=== PATIENT | female | born 1980 | race Caucasian/White ===

== ENCOUNTER → 2016-11-02 | Outpatient (CLI) | payer BC ==
--- NOTE | 2016-11-03 09:19 | WWHP ---
DATE OF SERVICE: 11/02/2016 CHIEF COMPLAINT: The patient is here for her routine gynecologic exam. HPI: This is a 36-year-old G0 with an LMP of 2015. She is status post supracervical hysterectomy and left salpingo-oophorectomy with previous right salpingo-oophorectomy for low malignant potential tumors of the ovary. The patient is without gynecologic complaints and denies any vaginal bleeding. She states her problems with urinary leakage have resolved and hot flashes have also improved. She is not on ERT. 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 She denies any other medical problems. MEDICATIONS: She is currently taking amoxicillin temporarily for issues with her wisdom teeth. ALLERGIES: No known drug allergies. Past surgical history is unchanged from the 2016 H&P. SOCIAL HISTORY: She denies tobacco, alcohol, and drug use. 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 She recently filed for bankruptcy for financial problems. She has been with her boyfriend since 12/2015 and is sexually active. They do not live together. FAMILY HISTORY: Unknown since she is adopted. REVIEW OF SYSTEMS: She has gained about 14 pounds over the last year. She denies respiratory, cardiac, or GI problems. PHYSICAL EXAM: Blood pressure 134/72. Height 5 feet 4 inches. Weight 154 pounds. Temperature 96.4, pulse 62. This is a well-developed, well-nourished female who is alert and oriented x3, in no acute distress. HEENT is within normal limits. NECK: Supple without mass or thyromegaly. CHEST AND LUNGS: Clear to auscultation. HEART: Regular rate and rhythm. Breasts are without mass or discharge. Axillary exam is negative for adenopathy. BACK: Negative for CVA tenderness. ABDOMEN: Soft, nontender, without palpable masses. PELVIC EXAM: Normal external genitalia with no significant atrophy. Cervix and vagina appear normal. There is no significant atrophy. The cervix appears nulliparous. There is no unusual discharge. There is no cervical motion tenderness. Bimanual examination, the cervix in his normal size. There are no pelvic or adnexal masses or tenderness. Rectovaginal exam is negative for mass or tenderness. EXTREMITIES: Nontender. IMPRESSION: 1. A 36-year-old female who is status post supracervical hysterectomy and bilateral salpingo-oophorectomy because of her history of low-malignant potential ovarian tumors. 2. Normal gynecologic exam. 3. History of a benign left breast biopsy. PLAN: 1. Pap smear was performed. 2. Self breast examination was discussed. 3. The patient did have bilateral diagnostic mammogram on 04/30/2016. The recommendation was for followup diagnostic mammogram and ultrasound of the left breast in 6 months. An order slip for this was given to the patient. 4. Osteoporosis prevention was discussed. 5. STD prevention was discussed. I have recommended she use condoms if she is sexually active. 6. She will return in one year.
== END | disposition home or self-care (01) ==
LOC: WWCWWP 12:55
PROVIDERS: ATTEND Obstetrics & Gynecology

== ENCOUNTER → 2017-11-08 | Outpatient (CLI) | payer BC ==
[2017-11-08 08:20] VITALS: BP 115/73; PULSE 74; TEMP 98.1; BMI 27.4
--- NOTE | 2017-11-08 09:01 | P.HPOB ---
History of Present Illness H&P Date: 11/08/17 Chief Complaint: The patient is here for her routine gynecologic exam. This is a 36-year-old G0 with an LMP of 2014. She is status post supra- cervical hysterectomy and bilateral salpingo-oophorectomy for low malignant potential tumors of the ovaries. The patient is on low-dose ERT because of menopausal symptoms including emotional changes and moodiness. She states she is doing well with this. She is without gynecologic complaints. Review of Systems She has gained about 6 pounds over the last year. She denies respiratory, cardiac, or G.I. problems. 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 Past Anesthesia/Blood Transfusion Reactions: No Reported Reaction Additional Past Anesthesia/Blood Transfusion Reaction / Comment(s): adopted-no family hx Past Psychological History: No Psychological Hx Reported Smoking Status: Never smoker Past Alcohol Use History: None Reported Past Drug Use History: None Reported Additional History: The patient is single and has been with her boyfriend since 12/2015. She does not live with him. She works full-time at [employer]. - Past Family History Mother Family Medical History: Unable to Obtain (The patient is adopted.) Additional Family Medical History / Comment(s): no family hx Medications and Allergies Home Medications Medication Instructions Recorded Confirmed Type Esomeprazole Magnesium [NexIUM] 20 mg PO DAILY PRN 12/05/14 12/10/14 History L.acidoph,Paracasei, B.lactis 1 tab PO DAILY 12/05/14 12/10/14 History [Probiotic] Multivitamins, Thera [Theragran] 1 tab PO DAILY 12/05/14 12/10/14 History Estradiol [Estrace] 0.5 mg PO DAILY 11/08/17 11/08/17 History Allergies Allergy/AdvReac Type Severity Reaction Status Date / Time No Known Allergies Allergy Verified 11/08/17 08:22 Exam - Vital Signs Vital signs: Vital Signs Temp Pulse BP 11/08/17 08:16 98.1 F 74 115/73 Intake and Output 11/07/17 11/08/17 11/08/17 22:59 06:59 14:59 Other: Weight 72.575 kg Height 5'4" BMI 27.5. This is a well-developed well-nourished female who is alert and oriented times 3 in no acute distress. HEENT: Within normal limits. NECK: Supple without mass or thyromegaly. CHEST AND LUNGS: Clear to auscultation. HEART: Regular rate and rhythm. BREASTS: Are without mass or discharge. AXILLARY EXAM: Negative for adenopathy. BACK: Negative for CVA tenderness. ABDOMEN: Soft, nontender, without palpable masses. PELVIC EXAM: Normal external genitalia. Cervix and vagina appear normal without significant atrophy. There is no unusual discharge. There is no evidence of prolapse. The cervix is palpable, not enlarged and nontender. Findings are consistent with a previous supracervical hysterectomy. There are no palpable adnexal masses or tenderness. RECTAL EXAM: recto vaginal exam is negative for mass or tenderness. EXTREMITIES: Nontender. IMPRESSION: 1. 37-year-old surgically menopausal female who is status post supracervical hysterectomy and bilateral salpingo-oophorectomy for low malignant potential ovarian tumors in 2011 and 2014. There is no evidence of recurrence. 2. The patient is doing well on low-dose ERT for menopausal symptoms. PLAN: 1. Pap smear was performed. She is considered a high risk. 2. Self breast awareness was discussed. 3. Osteoporosis prevention was discussed. 4. She will continue on low-dose estradiol. 5. We have discussed the option of BRCA testing. She will consider this and let me know if she desires this type of testing. I have stressed the importance of having cancer genetic counseling done if she wants this kind of testing. 6. She will be following up with Dr. Alf Pope, her INCREMENT MANAGER oncologist, on a regular basis. 7. She will return in one year.
== END ==
LOC: WWCWWP 07:45
PROVIDERS: ATTEND Obstetrics & Gynecology
DX: Z53.9 Procedure and treatment not carried out, unspecified reason (principal)

== ENCOUNTER → 2018-05-09 | Outpatient (CLI) | payer BC ==
--- NOTE | 2018-05-09 15:26 | US ---
EXAMINATION TYPE: US pelvis limited transvag DATE OF EXAM: 05/09/2018 COMPARISON: CT CLINICAL HISTORY: C56.9 Malignant neoplasm of unspecified ovary. TECHNIQUE: Transvaginal (TV) and Transabdominal (TA) . Transabdominal sonographic images of the pel vis were acquired. Transvaginal sonographic images were ordered by physician due to patient history. Date of LMP: 2014 Pt. had hysterectomy and bilateral oophorectomy. She had a history of cysts that were sent to patholo gy coming back as borderline for ovarian cancer. EXAM MEASUREMENTS: Uterus: Surgically absent cm Right Ovary: Surgically absent Left Ovary: Surgically absent 1. Uterus: Surgically absent 2. Endometrium: Surgically absent 3. Right Ovary: Surgically absent 4. Left Ovary: Surgically absent 5. Bilateral Adnexa: wnl 6. Posterior cul-de-sac: wnl IMPRESSION: Surgical absence of uterus and ovaries. No suspicious findings in the postsurgical bed.
== END ==
LOC: RADUSWWP 14:28
PROVIDERS: ATTEND Obstetrics & Gynecology
DX: C56.9 Malignant neoplasm of unspecified ovary (principal); Z90.710 Acquired absence of both cervix and uterus; Z90.722 Acquired absence of ovaries, bilateral
CPT/HCPCS: 36415; 76830; 76857; 86304

== ENCOUNTER → 2018-06-28 | Outpatient (CLI) | payer BC ==
[2018-06-28 08:48] VITALS: BP 121/79; PULSE 62; BMI 26.2
--- NOTE | 2018-06-28 09:21 | P.PN ---
Progress Note - Text Progress Note Date: 06/28/18 Chief Complaint: requesting change in ERT HPI: this is a 37-year-old G0 with an LMP of 2015 [address] seen [address] Dr[address] Poep, the DATA ENTRY ASSOCIATE oncologist, because her history of ovarian cancer of low malignant potential. Dr. Pope had recommended that she increased her ERT because she was made surgically menopausal at such a young age. She has been on Estrace 0.5 mg daily. She denies any significant menopausal symptoms. ROS: unremarkable PE: Blood pressure: 132/86, Height: 5'4", Weight: 192, Temperature: 97.9, Pulse : 99. This is a well developed, well nourished, female who is alert and orientedx3, in no acute distress. Impression: 1. 37-year-old surgically menopausal female on low-dose ERT 2. History of ovarian cancer of low malignant potential, status post MARGARET and BSO Plan: 1. We will increase her ERT to Estrace 1 mg daily. I do believe this will be beneficial for her bones and vaginal tissues. The electronic prescription will be sent to [facility] in [place]. 2. She will call if she has any problems or side effects from this change. She will return next year which is due for her annual will woman exam. She will also continue to follow-up with Dr. Pope as directed. Time spent with the patient: 10 minutes
== END ==
LOC: WWCWWP 08:18
PROVIDERS: ATTEND Obstetrics & Gynecology
DX: Z53.9 Procedure and treatment not carried out, unspecified reason (principal)

== ENCOUNTER → 2018-11-14 | Outpatient (CLI) | payer BC ==
[2018-11-14 11:31] VITALS: BP 121/83; PULSE 63; RESP 20; TEMP 97.4; BMI 26.6
--- NOTE | 2018-11-14 12:30 | P.HPOB ---
History of Present Illness H&P Date: 11/14/18 Chief Complaint: The patient is here for her routine gynecologic exam. This is a 38 year old G0 with an LMP of 2014. The patient is status post supracervical hysterectomy and bilateral salpingo-oophorectomy done because of history of low malignant potential ovarian tumors. The patient states she is doing better on the 1 mg dose of estradiol. This was increased from 0.5 mg daily in June 2018. She states she feels more emotionally balanced with this dose of ERT. She is without gynecologic complaints and denies any vaginal bleeding. She continues to see a gynecologic oncologist, Dr. Alf Pope. Review of Systems The patient has lost 4 pounds over the last year. She denies respiratory, cardiac, or G.I. problems. 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 hx ovarian cancer of LMP 2011 and 2014. History of Any Multi-Drug Resistant Organisms: None Reported Past Surgical History: Breast Surgery Additional Past Surgical History / Comment(s): rt oophorectomy and left ovarian cystectomy in 2011, supracervical hysterectomy with left salpingo-oophorectomy and right salpingectomy in 2014. Left breast biopsy. Past Anesthesia/Blood Transfusion Reactions: No Reported Reaction Additional Past Anesthesia/Blood Transfusion Reaction / Comment(s): adopted-no family hx Past Psychological History: No Psychological Hx Reported Smoking Status: Never smoker Past Alcohol Use History: None Reported Past Drug Use History: None Reported Additional History: She is single and has been with her boyfriend since 2014. She does not live with him. She works full-time at [employer] in the [employer]. - Past Family History Mother Family Medical History: Unable to Obtain Additional Family Medical History / Comment(s): no family hx. The patient is adopted. Medications and Allergies Home Medications Medication Instructions Recorded Confirmed Type Multivitamins, Thera [Theragran] 1 tab PO DAILY 12/05/14 11/14/18 History Estradiol [Estrace] 1 mg PO DAILY #90 tab 06/28/18 11/14/18 Rx Allergies Allergy/AdvReac Type Severity Reaction Status Date / Time No Known Allergies Allergy Verified 11/14/18 11:25 Exam Vital Signs Temp Pulse Resp BP Pulse Ox 11/14/18 11:26 97.4 F L 63 20 121/83 100 Intake and Output 11/13/18 11/14/18 11/14/18 22:59 06:59 14:59 Other: Weight 70.307 kg Height 5'4", weight 155 pounds, BMI 26.6. This is a well-developed well-nourished female who is alert and oriented times 3 in no acute distress. HEENT: Within normal limits. NECK: Supple without mass or thyromegaly. CHEST AND LUNGS: Clear to auscultation. HEART: Regular rate and rhythm. BREASTS: Are without mass or discharge. AXILLARY EXAM: Negative for adenopathy. BACK: Negative for CVA tenderness. ABDOMEN: Soft, nontender, without palpable masses. PELVIC EXAM: Normal external genitalia. Cervix and vagina appear normal. There is no unusual discharge. There is no evidence of prolapse. Cervix is palpable and consistent with previous supracervical hysterectomy, and is nontender. There are no palpable adnexal masses or tenderness. RECTAL EXAM: rectovaginal exam is negative for mass or tenderness and is negative for occult blood. EXTREMITIES: Nontender. IMPRESSION: 1. 38 year old surgically menopausal female who is status post supracervical hysterectomy and bilateral salpingo-oophorectomy for low malignant potential ovarian tumors in 2011 and 2014. There is no evidence of recurrence. 2. Doing well on 1 mg of estradiol daily for menopausal symptoms. PLAN: 1. Pap smear was performed. I will continue to do this yearly because of her history of the gynecologic malignancy. 2. Self breast awareness was discussed with the patient. 3. Screening mammography will resume at age 42 or PRN. 4. Osteoporosis prevention was discussed. I have stressed the importance of adequate calcium, vitamin D and regular exercise. Recommended amounts of calcium and vitamin D were also discussed. 5. She will continue to follow-up with Dr. Alf Pope, her PRECISION LENS POLISHER oncologist. She has an appointment with him on 12/06/2018. 6.She was advised to return in one year for her annual well woman exam.
== END | disposition home or self-care (01) ==
LOC: WWCWWP 10:59
PROVIDERS: ATTEND Obstetrics & Gynecology
DX: Z53.9 Procedure and treatment not carried out, unspecified reason (principal)

== ENCOUNTER → 2018-11-27 | Outpatient (CLI) | payer BC ==
--- NOTE | 2018-11-27 08:05 | US ---
EXAMINATION TYPE: US abdomen complete DATE OF EXAM: 11/27/2018 COMPARISON: NONE CLINICAL HISTORY: C56.9 Malignant neoplasm of unspecified ovary. assess abdominal organs prior to onc ology appointment,h/o ovarian ca, no symptoms today EXAM MEASUREMENTS: Liver Length: 15.3 cm Gallbladder Wall: 0.2 cm CBD: 0.7 cm Spleen: 9.6 cm Right Kidney: 10.8 x 4.5 x 4.4 cm Left Kidney: 10.8 x 5.5 x 5.5 cm Pancreas: wnl Liver: wnl Gallbladder: wnl Evidence for sonographic Miller's sign: n o CBD: upper limits of normal Spleen: wnl Right Kidney: wnl Left Kidney: 1.2cm superior pole cyst seen Upper IVC: wnl Abd Aorta: wnl The liver is homogenous. The intrahepatic portion of the IVC and proximal abdominal aorta are within normal limits. There is no evidence of cholelithiasis. Common bile duct is unremarkable. The visu alized portions of the pancreas are homogenous. The spleen is unremarkable. Kidneys are symmetric a nd free of hydronephrosis. No solid renal lesions are seen. IMPRESSION: 1. Cyst upper pole left kidney. Otherwise unremarkable study.
--- NOTE | 2018-11-27 08:38 | US ---
EXAMINATION TYPE: US pelvis limited transvag DATE OF EXAM: 11/27/2018 COMPARISON: NONE CLINICAL HISTORY: C56.9 Malignant neoplasm of unspecified ovary. total hysterectomy 2015, ovarian ca, follow up exam prior to oncologist appointment, no symptoms currently TECHNIQUE: TA/TV. Transabdominal sonographic images of the pelvis were acquired. Date of LMP: 2014 EXAM MEASUREMENTS: Uterus: Surgically absent Endometrial Stripe: Surgically absent Right Ovary: Surgically absent Left Ovary: Surgically absent IMPRESSION: Post hysterectomy pelvis appears wnl with no obvious fluid collections or abnormalities noted.
== END | disposition home or self-care (01) ==
LOC: RADUSWWP 07:01
DX: N28.1 Cyst of kidney, acquired (principal); C56.9 Malignant neoplasm of unspecified ovary; Z90.710 Acquired absence of both cervix and uterus
CPT/HCPCS: 76700; 76830; 76857

== ENCOUNTER → 2019-08-20 | Outpatient (CLI) | payer BC ==
--- NOTE | 2019-08-20 15:03 | US ---
EXAMINATION TYPE: US pelvis complete transvag DATE OF EXAM: 08/20/2019 COMPARISON: US 2019 CLINICAL HISTORY: D39.10 Neoplasm of uncertain behavior of. Total hysterectomy 2015, history ovarian cancer, no symptoms. TECHNIQUE: Transabdominal sonographic images of the pelvis were acquired. Transvaginal sonographic i mages were medically necessary to better assess the following anatomy: Date of LMP: 2014 EXAM MEASUREMENTS: 1. Uterus: surgically absent 2. Endometrium: surgically absent 3. Right Ovary: surgically absent 4. Left Ovary: surgically absent 5. Bilateral Adnexa: wnl 6. Posterior cul-de-sac: wnl Bowel is noted throughout the visualized pelvis. IMPRESSION: Bowel seen throughout the pelvis. Surgical absence of the ovaries and uterus.
== END | disposition home or self-care (01) ==
LOC: RADUSWWP 14:22
PROVIDERS: ATTEND Obstetrics & Gynecology Gynecologic Oncology
DX: D39.10 Neoplasm of uncertain behavior of unspecified ovary (principal); C56.9 Malignant neoplasm of unspecified ovary; Z90.722 Acquired absence of ovaries, bilateral; Z90.710 Acquired absence of both cervix and uterus
CPT/HCPCS: 76830; 76857; 86304

== ENCOUNTER → 2020-01-08 | Outpatient (CLI) | payer BC ==
[2020-01-08 15:34] VITALS: BP 125/80; PULSE 55; RESP 18; TEMP 98.1
--- NOTE | 2020-01-08 16:42 | P.HPOB ---
History of Present Illness H&P Date: 01/08/20 Chief Complaint: The patient is here for her routine gynecologic exam. This is a 39-year-old G0 with an LMP of 2014. The patient is status post supracervical hysterectomy with I lateral salpingo-oophorectomy done because of history of low malignant potential ovarian tumors. The patient states she has been doing well on 1 mg of estradiol daily. She is without gynecologic complaints. She continues to see her gynecologic oncologist Dr. Alf Pope. Pelvic ultrasound and CA-125 testing in July 2019 were within normal limits. Review of Systems The patient has lost 5 pounds over the last year with diet and exercise.. She denies respiratory, cardiac, or G.I. problems. 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 hx ovarian cancer of LMP 2011 and 2014. History of Any Multi-Drug Resistant Organisms: None Reported Past Surgical History: Breast Surgery, Hysterectomy Additional Past Surgical History / Comment(s): rt oophorectomy and left ovarian cystectomy in 2011, supracervical hysterectomy with left salpingo-oophorectomy and right salpingectomy in 2014. Left breast biopsy. Past Anesthesia/Blood Transfusion Reactions: No Reported Reaction Additional Past Anesthesia/Blood Transfusion Reaction / Comment(s): adopted-no family hx Past Psychological History: No Psychological Hx Reported Smoking Status: Never smoker Past Alcohol Use History: None Reported Past Drug Use History: None Reported Additional History: She is engaged and has been with her fianc since 2014. She lives with him. She works at [employer] in the [employer]. - Past Family History Mother Family Medical History: Unable to Obtain Additional Family Medical History / Comment(s): no family hx. The patient is adopted. Medications and Allergies Home Medications Medication Instructions Recorded Confirmed Type Multivitamins, Thera [Theragran] 1 tab PO DAILY 12/05/14 01/08/20 History Estradiol [Estrace] 1 mg PO DAILY #90 tab 11/14/18 01/08/20 Rx Allergies Allergy/AdvReac Type Severity Reaction Status Date / Time No Known Allergies Allergy Verified 01/08/20 15:28 Exam Vital Signs Temp Pulse Resp BP Pulse Ox 01/08/20 15:30 98.1 F 55 L 18 125/80 100 Intake and Output 01/08/20 01/08/20 01/08/20 06:59 14:59 22:59 Other: Weight 68.039 kg Height 5 feet 3 inches, weight 150 pounds, BMI 26.6. This is a well-developed well-nourished female who is alert and oriented times 3 in no acute distress. HEENT: Within normal limits. NECK: Supple without mass or thyromegaly. CHEST AND LUNGS: Clear to auscultation. HEART: Regular rate and rhythm. BREASTS: Are without mass or discharge. AXILLARY EXAM: Negative for adenopathy. BACK: Negative for CVA tenderness. ABDOMEN: Soft, nontender, without palpable masses. PELVIC EXAM: Normal external genitalia. Cervix and vagina appear normal. There is no unusual discharge. There is no evidence of prolapse. The cervix is palpable and consistent with previous supracervical hysterectomy and is nontender. There are no palpable adnexal masses or tenderness. RECTAL EXAM: Rectovaginal exam is negative for mass or tenderness and is negative for occult blood. EXTREMITIES: Nontender. IMPRESSION: 1. 39-year-old surgically menopausal female who is status post supracervical hysterectomy and bilateral salpingo-oophorectomy for low malignant potential ovarian tumors in 2011 and 2014. Exam is unremarkable and there is no evidence of recurrence. 2. She is doing well on ERT for menopausal symptoms. PLAN: 1. Pap smear was performed. I will continue to do this yearly because of her history of the gynecologic malignancy. 2. Self breast awareness was discussed with the patient. 3. Screening mammogram will resume at age 42 and as needed. 4. Osteoporosis prevention was discussed. I have stressed the importance of adequate calcium, vitamin D and regular exercise. Recommended amounts of calcium and vitamin D were also discussed. 5. She will continue Estradiol 1 mg daily. The electronic prescription will be sent to my her pharmacy in [place]. 6. She will continue to see Dr. Pope, her COLLAR SHAPER OPERATOR oncologist. He has been doing regular pelvic ultrasounds and CA-125 testing. 7. She was advised to return in one year for her annual well woman exam.
--- NOTE | 2020-01-16 12:41 | P.PN ---
Progress Note - Text Progress Note Date: 01/16/20 OUTPATIENT FOLLOW-UP NOTE TEST(S)/RESULTS: Vaginal cuff Pap smear from 01/08/2020 was negative. METHOD OF NOTIFICATION: The patient was left a voice mail with this result. PATIENT COMMENTS: [] DIAGNOSIS: Negative vaginal Pap smear. DISCUSSION: A copy will be sent to her DETECTIVE SUPERVISOR oncologist, Dr. Alf Pope. PLAN: She was advised to return in one year for her annual well woman exam. She will also be following up with Dr. Pope as directed.
== END | disposition home or self-care (01) ==
LOC: WWCWWP 15:21
PROVIDERS: ATTEND Obstetrics & Gynecology
DX: Z53.9 Procedure and treatment not carried out, unspecified reason (principal)

== ENCOUNTER → 2020-07-22 | Outpatient (CLI) | payer BC ==
--- NOTE | 2020-07-22 10:34 | US ---
EXAMINATION TYPE: US venous doppler duplex LE RT DATE OF EXAM: 07/22/2020 10:23 AM COMPARISON: NONE CLINICAL HISTORY: M79.604 Pain in right leg. SIDE PERFORMED: Right TECHNIQUE: The lower extremity deep venous system is examined utilizing real time linear array sonog anay with graded compression, doppler sonography and color-flow sonography. VESSELS IMAGED: Common Femoral Vein Deep Femoral Vein Greater Saphenous Vein * Femoral Vein Popliteal Vein Small Saphenous Vein * Proximal Calf Veins (* superficial vessels) Right Leg: Negative for DVT Preliminary results given to L[place] at Dr. Vidal's office. IMPRESSION: 1. Right lower extremity ultrasound negative for deep venous thrombosis.
== END | disposition home or self-care (01) ==
LOC: RADUSWWP 09:47
PROVIDERS: ATTEND Family Medicine
DX: M79.604 Pain in right leg (principal)

== ENCOUNTER → 2021-01-27 | Outpatient (CLI) | payer BC | CPT/HCPCS: 86304 ==

== ENCOUNTER → 2022-02-23 | Outpatient (CLI) | payer BC ==
[2022-02-23 08:01] VITALS: BP 129/84; PULSE 55; RESP 18; TEMP 97.9
--- NOTE | 2022-02-23 08:48 | P.HPOB ---
History of Present Illness H&P Date: 02/23/22 Chief Complaint: The patient is here for her routine gynecologic exam. This is a 41-year-old G0 with an LMP of 2014. The patient is without gynecologic complaints and denies any postmenopausal bleeding. She is status post supracervical hysterectomy with bilateral salpingo-oophorectomy because of her history of low malignant potential ovarian tumors. She is now approximately 7 years out from her hysterectomy and removal of her remaining ovary. She has been doing well on ERT in the form of estradiol 1 mg daily. Her last pelvic ultrasound was done approximately 3 months ago and was unremarkable. 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 Review of Systems The patient has gained 8 pounds over the last year. She denies respiratory, cardiac, or G.I. problems. 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 hx ovarian cancer of low malignant potential 2011 and 2014. History of Any Multi-Drug Resistant Organisms: None Reported Past Surgical History: Breast Surgery, Hysterectomy Additional Past Surgical History / Comment(s): rt oophorectomy and left ovarian cystectomy in 2011, supracervical hysterectomy with left salpingo-oophorectomy and right salpingectomy in 2014. Left breast biopsy. Past Anesthesia/Blood Transfusion Reactions: No Reported Reaction Additional Past Anesthesia/Blood Transfusion Reaction / Comment(s): adopted-no family hx Past Psychological History: No Psychological Hx Reported Smoking Status: Never smoker Past Alcohol Use History: None Reported Past Drug Use History: None Reported Additional History: She is engaged to be in April 2022. They have been together since 2014 and they live together. She'll be starting a new job working for a company in [employer]. - Past Family History Mother Family Medical History: Unable to Obtain Additional Family Medical History / Comment(s): no family hx. The patient is adopted. Medications and Allergies Home Medications Medication Instructions Recorded Confirmed Type Multivitamins, Thera [Theragran] 1 tab PO DAILY 12/05/14 02/23/22 History estradioL [Estrace] 1 mg PO DAILY #90 tab 01/27/21 02/23/22 Rx Allergies Allergy/AdvReac Type Severity Reaction Status Date / Time No Known Allergies Allergy Verified 02/23/22 07:56 Exam Vital Signs Temp Pulse Resp BP Pulse Ox 02/23/22 07:58 97.9 F 55 L 18 129/84 100 Intake and Output 02/22/22 02/23/22 02/23/22 22:59 06:59 14:59 Other: Weight 75.75 kg Height 5 feet 4 inches, weight 167 pounds, BMI 28.7. This is a well-developed well-nourished female who is alert and oriented times 3 in no acute distress. HEENT: Within normal limits. NECK: Supple without mass or thyromegaly. CHEST AND LUNGS: Clear to auscultation. HEART: Regular rate and rhythm. BREASTS: Are without mass or discharge. AXILLARY EXAM: Negative for adenopathy. BACK: Negative for CVA tenderness. ABDOMEN: Soft, nontender, without palpable masses. PELVIC EXAM: Normal external genitalia. Cervix and vagina appear normal. There is no unusual discharge. There is no evidence of prolapse. The cervix is palpable and consistent with a supracervical hysterectomy. There are no palpable adnexal masses or tenderness. RECTAL EXAM: Rectovaginal exam is negative for mass or tenderness. EXTREMITIES: Nontender. IMPRESSION: 1. 41-year-old female status post supracervical hysterectomy and BSO for low malignant potential ovarian tumors in 2011 and 2014. Her exam today is unremarkable with no evidence of recurrence. 2. She is doing well on ERT for early menopause and menopausal symptoms. PLAN: 1. Pap smear was obtained. This will continue to be done yearly because of her history of ovarian cancer. 2. Self breast awareness was discussed with the patient. We have also discussed symptoms associated with inflammatory breast cancer. 3. We will resume mammograms at age 42. 4. She will continue estradiol 1 mg by mouth daily. The electronic prescription will be sent to my her pharmacy in [place]. 5. We will continue yearly Pap smears, CA-125 testing, and yearly ultrasounds. Since she recently had a negative pelvic ultrasound, this will not be repeated until next year. The order slip for the CA-125 test was given to the patient and she will have this done today. 6. We have reviewed symptoms of ovarian cancer and she will call if she is developing any unusual abdominal or pelvic symptoms. 7. Osteoporosis prevention was discussed. 8. She was advised to return in one year for her annual well woman exam and as needed.
== END ==
LOC: WWCWWP 07:47
PROVIDERS: ATTEND Obstetrics & Gynecology
DX: Z01.419 Encounter for gynecological examination (general) (routine) without abnormal findings (principal); Z85.43 Personal history of malignant neoplasm of ovary; Z90.710 Acquired absence of both cervix and uterus; Z90.722 Acquired absence of ovaries, bilateral; Z79.890 Hormone replacement therapy
CPT/HCPCS: 86304

== ENCOUNTER → 2022-12-24 | Outpatient (CLI) | payer BC ==
--- NOTE | 2022-12-24 08:48 | US ---
EXAMINATION TYPE: US pelvic limited DATE OF EXAM: 12/24/2022 COMPARISON: Prior pelvic ultrasound October 27, 2021 CLINICAL INDICATION: Female, 42 years old with history of BL OVARIAN LMP TUMORS [id number]; total hysterec lya 2014 for low malignancy potential in bilateral ovarian lesions, currently no symptoms TECHNIQUE: TA. Transabdominal sonographic images of the pelvis were acquired. Date of LMP: total hyst 8 years ago EXAM MEASUREMENTS: Uterus: Surgically absent Endometrial Stripe: Surgically absent Right Ovary: Surgically absent Left Ovary: Surgically absent 1. Uterus: Surgically absent 2. Endometrium: Surgically absent 3. Right Ovary: Surgically absent 4. Left Ovary: Surgically absent 5. Bilateral Adnexa: wnl 6. Posterior cul-de-sac: wnl IMPRESSION: No free fluid or new suspicious pelvic masses. No significant change from most recent placido or ultrasound.
--- NOTE | 2022-12-27 10:12 | MM ---
Reason for Exam: Screening (asymptomatic). Last mammogram was performed 5 year(s) and 6 month(s) ago. Patient History: Menarche at age 13. Patient has no children. Left ovary removed at age 34. Right ovary removed at age 30. Hysterectomy at age 34. Postmenopausal. Currently using Estrogen, beginning at age 35 for 7 years. 04/11/2015, Benign Core Biopsy on the left side. 09/18/2013, Benign Core Biopsy on the left side. Risk Values: Phyllis 5 year model risk: 1.8%. NCI Lifetime model risk: 19.2%. Prior Study Comparison: 10/07/2015 Left Diagnostic Mammogram, [facility]. 04/30/2016 Bilateral Diagnostic Mammogram, [facility]. 07/05/2017 Bilateral Diagnostic Mammogram, [facility]. Tissue Density: The breast tissue is heterogeneously dense. This may lower the sensitivity of mammography. Findings: Analyzed By CAD. There are 2 biopsy clips in the left breast redemonstrated. There is no suspicious group of microcalcifications or new suspicious mass in either breast. Overall Assessment: Benign, BI-RAD 2 Management: Screening Mammogram of both breasts in 1 year. . Patient should continue monthly self-breast exams. A clinical breast exam by your physician is recommended on an annual basis. This exam should not preclude additional follow-up of suspicious palpable abnormalities. Note on Phyllis scores and lifetime risk: 1. A Phyllis score greater than 3% is considered moderate risk. If this is the case, consider specialist referral to assess eligibility for a risk reducing agent. 2. If overall lifetime risk for the development of breast cancer is 20% or higher, the patient may qualify for future screening with alternating mammogram and breast MRI. Electronically signed and approved by: Yahir Spring M.D.
--- NOTE | 2022-12-28 10:17 | P.PN ---
Progress Note - Text Progress Note Date: 12/28/22 OUTPATIENT FOLLOW-UP NOTE TEST(S)/RESULTS: Test results from 12/24/22 include benign mammogram, normal CA- 125, and unremarkable pelvic ultrasound. METHOD OF NOTIFICATION: The patient was notified by phone on 12/28/2022. PATIENT COMMENTS: The patient is happy with these results. DIAGNOSIS: History of bilateral ovarian tumors of low malignant potential, status post hysterectomy with BSO. Benign mammogram, normal pelvic ultrasound, and normal CA-125 test. DISCUSSION: PLAN: She was advised to return in one year for her annual well woman exam.
== END | disposition home or self-care (01) ==
LOC: RADUSWWP 08:12
PROVIDERS: ATTEND Obstetrics & Gynecology
DX: Z12.31 Encounter for screening mammogram for malignant neoplasm of breast (principal); Z85.43 Personal history of malignant neoplasm of ovary; Z78.0 Asymptomatic menopausal state
CPT/HCPCS: 76857; 77067; 86304

== ENCOUNTER → 2023-12-06 | Outpatient (CLI) | payer BC ==
[2023-12-06 10:17] VITALS: BP 122/84; PULSE 67; RESP 17; TEMP 97.8
--- NOTE | 2023-12-06 10:17 | P.HPOB ---
History of Present Illness H&P Date: 12/06/23 Chief Complaint: The patient is here for her routine gynecologic exam. This is a 43-year-old G0 with an LMP of 2014. She is status post supracervical hysterectomy with bilateral salpingo-oophorectomy because of her history of bilateral low malignant potential ovarian tumors. She is without gynecologic complaints and denies any postmenopausal bleeding. She has been doing well with ERT in the form of estradiol 1 mg daily. Review of Systems The patient's weight has been stable over the last year. She denies respiratory, cardiac, or G.I. problems. 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 hx ovarian cancer of low malignant potential 2011 and 2014 ([id number](N/A). History of Any Multi-Drug Resistant Organisms: None Reported Past Surgical History: Breast Surgery, Hysterectomy Additional Past Surgical History / Comment(s): rt oophorectomy and left ovarian cystectomy in 2011, supracervical hysterectomy with left salpingo-oophorectomy and right salpingectomy in 2014. Left breast biopsy. Past Anesthesia/Blood Transfusion Reactions: No Reported Reaction Additional Past Anesthesia/Blood Transfusion Reaction / Comment(s): adopted-no family hx Past Psychological History: No Psychological Hx Reported Smoking Status: Never smoker Past Alcohol Use History: None Reported Past Drug Use History: None Reported - Past Family History Mother Family Medical History: Unable to Obtain Additional Family Medical History / Comment(s): no family hx. The patient is adopted. Medications and Allergies Home Medications Medication Instructions Recorded Confirmed Type Multivitamins, Thera [Theragran] 1 tab PO DAILY 12/05/14 12/06/23 History estradioL [Estrace] 1 mg PO DAILY #90 tab 11/30/22 12/06/23 Rx L.acidoph,Paracasei, B.lactis 1 cap PO DAILY 12/06/23 12/06/23 History [Probiotic] Allergies Allergy/AdvReac Type Severity Reaction Status Date / Time No Known Allergies Allergy Verified 12/06/23 09:38 Exam Vital Signs Temp Pulse Resp BP Pulse Ox 12/06/23 09:39 97.8 F 67 17 122/84 97 Intake and Output 12/05/23 12/06/23 12/06/23 22:59 06:59 14:59 Other: Weight 74.389 kg Height 5 feet 4 inches, weight 164 pounds, BMI 28.2. This is a well-developed well-nourished female who is alert and oriented times 3 in no acute distress. HEENT: Within normal limits. NECK: Supple without mass or thyromegaly. CHEST AND LUNGS: Clear to auscultation. HEART: Regular rate and rhythm. BREASTS: Are without mass or discharge. AXILLARY EXAM: Negative for adenopathy. BACK: Negative for CVA tenderness. ABDOMEN: Soft, nontender, without palpable masses. PELVIC EXAM: Normal external genitalia. Cervix and vagina appear normal. There is no unusual discharge. There is no evidence of prolapse. No uterine body above the cervix is palpable consistent with her previous supracervical hysterectomy. There are no palpable adnexal masses or tenderness. RECTAL EXAM: Rectovaginal exam is negative for mass or tenderness and is negative for occult blood. EXTREMITIES: Nontender. IMPRESSION: 1. 43-year-old menopausal female status post supracervical hysterectomy and BSO for bilateral low malignant potential ovarian tumors, with no evidence of recurrence on exam today. 2. Doing well on ERT. PLAN: 1. Pap smear was performed. Her previous gynecologic oncologist recommended yearly Pap smears because of her history. 2. Self breast awareness was discussed with the patient. We have also discussed symptoms associated with inflammatory breast cancer. 3. Screening mammogram will be due after 12/25/23 and the order slip was given to the patient for this. 4. We will continue yearly CA125 test and yearly pelvic ultrasounds because of her history. The order slips were given to the patient for these. 5. Osteoporosis prevention was discussed. I have stressed the importance of adequate calcium, vitamin D and regular exercise. Recommended amounts of calcium and vitamin D were also discussed. 6. Continue estradiol 1 mg daily p.o. The electronic prescription will be sent to [facility] in [place]. 7. She was advised to return in one year for her annual well woman exam.
== END ==
LOC: WWCWWP 09:13
PROVIDERS: ATTEND Obstetrics & Gynecology
DX: Z78.0 Asymptomatic menopausal state (principal); Z90.710 Acquired absence of both cervix and uterus; Z85.43 Personal history of malignant neoplasm of ovary

== ENCOUNTER → 2023-12-26 | Outpatient (CLI) | payer BC ==
--- NOTE | 2023-12-26 19:56 | US ---
EXAMINATION TYPE: US pelvis limited transvag DATE OF EXAM: 12/26/2023 COMPARISON: Pelvic ultrasound 12/24/2022, 10/27/2021, 08/20/2019 CLINICAL INDICATION: Female, 43 years old with history of Z85.43 PERSONAL HX OVARY CA C56.9 OV CA Z12 .31 SCR; total hysterectomy 2015 ovarian CA TECHNIQUE: Transvaginal (TV) and Transabdominal (TA) . EXAM MEASUREMENTS: Uterus: Surgically absent Endometrial Stripe: Surgically absent Right Ovary: Surgically absent Left Ovary: Surgically absent 1. Uterus: Surgically absent 2. Endometrium: Surgically absent 3. Right Ovary: Surgically absent 4. Left Ovary: Surgically absent 5. Bilateral Adnexa: wnl 6. Posterior cul-de-sac: no IMPRESSION: Overall no significant change from most recent prior ultrasound with surgical absence of the ovaries and uterus. No free fluid or new suspicious pelvic masses.
--- NOTE | 2023-12-27 08:58 | P.PN ---
Progress Note - Text Progress Note Date: 12/27/23 OUTPATIENT FOLLOW-UP NOTE TEST(S)/RESULTS: Test results from 12/26/2023 include normal CA125 test and negative pelvic ultrasound. METHOD OF NOTIFICATION: A message with these results was left on the patient's voicemail on 12/27/2023. PATIENT COMMENTS: DIAGNOSIS: Negative pelvic ultrasound and normal CA125 test DISCUSSION: PLAN: Mammogram results are pending. The patient was instructed to call if she has any questions
--- NOTE | 2023-12-27 21:01 | MM ---
Reason for Exam: Screening (asymptomatic). Last screening mammogram was performed 12 month(s) ago. Patient History: Menarche at age 13. Patient has no children. Left ovary removed at age 34. Right ovary removed at age 30. Hysterectomy at age 34. Postmenopausal. Currently using Estrogen, beginning at age 35 for 7 years. 04/11/2015, Benign Core Biopsy on the left side. 09/18/2013, Benign Core Biopsy on the left side. Risk Values: Phyllis 5 year model risk: 2.0%. NCI Lifetime model risk: 18.9%. Prior Study Comparison: 04/30/2016 Bilateral Diagnostic Mammogram, [facility]. 07/05/2017 Bilateral Diagnostic Mammogram, [facility]. 12/24/2022 Bilateral MG screening mammo w CAD, [facility]. Tissue Density: There are scattered areas of fibroglandular density. Findings: Analyzed By CAD. 2 microclip left breast from prior biopsies. Areas of asymmetric density are unchanged. There is no suspicious group of microcalcifications or new suspicious mass in either breast. Overall Assessment: Benign, BI-RAD 2 Management: Screening Mammogram of both breasts in 1 year. . Patient should continue monthly self-breast exams. A clinical breast exam by your physician is recommended on an annual basis. This exam should not preclude additional follow-up of suspicious palpable abnormalities. Note on Phyllis scores and lifetime risk: 1. A Phyllis score greater than 3% is considered moderate risk. If this is the case, consider specialist referral to assess eligibility for a risk reducing agent. 2. If overall lifetime risk for the development of breast cancer is 20% or higher, the patient may qualify for future screening with alternating mammogram and breast MRI. Electronically signed and approved by: Gaurav Whittington M.D. Radiologist
== END | disposition home or self-care (01) ==
LOC: RADUSWWP 13:43
PROVIDERS: ATTEND Obstetrics & Gynecology
DX: Z12.31 Encounter for screening mammogram for malignant neoplasm of breast (principal); Z78.0 Asymptomatic menopausal state; Z90.710 Acquired absence of both cervix and uterus; Z85.43 Personal history of malignant neoplasm of ovary
CPT/HCPCS: 36415; 76830; 76857; 77067; 86304

== ENCOUNTER → 2024-08-08 | Outpatient (CLI) | payer OTHER ==
[2024-08-08 11:39] VITALS: BP 119/84; PULSE 63; RESP 16; TEMP 97.6
--- NOTE | 2024-08-08 12:01 | P.HPOB ---
History of Present Illness H&P Date: 08/08/24 Chief Complaint: Patient is here for her routine gynecologic exam. This is a 43-year-old G0 with an LMP of 2014. She is status post supracervical hysterectomy with bilateral salpingo-oophorectomy because of her history of bilateral low malignant potential ovarian tumors. She states she is doing well with her ERT in the form of estradiol 1 mg daily. She is without gynecologic complaints and denies any postmenopausal bleeding. She has come a bit early for her annual exam and states this is because of an insurance change. Review of Systems The patient's weight has been stable over the last year. She denies respiratory, cardiac, or G.I. problems. 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 hx ovarian cancer of low malignant potential 2011 and 2014 ([id number](N/A). History of Any Multi-Drug Resistant Organisms: None Reported Past Surgical History: Breast Surgery, Hysterectomy Additional Past Surgical History / Comment(s): rt oophorectomy and left ovarian cystectomy in 2011, supracervical hysterectomy with left salpingo-oophorectomy and right salpingectomy in 2014. Left breast biopsy. 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 - Past Family History Mother Family Medical History: Unable to Obtain Additional Family Medical History / Comment(s): no family hx. The patient is adopted. Medications and Allergies Home Medications Medication Instructions Recorded Confirmed Type Multivitamins, Thera [Theragran] 1 tab PO DAILY 12/05/14 08/08/24 History L.acidoph,Paracasei, B.lactis 1 cap PO DAILY 12/06/23 08/08/24 History [Probiotic] estradioL [Estrace] 1 mg PO DAILY #90 tab 12/06/23 08/08/24 Rx Cholecalciferol [Vitamin D3 (25 1 tablet PO DAILY 08/08/24 08/08/24 History Mcg = 1000 Iu)] Magnesium Gluconate [Magonate] 1 tab PO 08/08/24 History Allergies Allergy/AdvReac Type Severity Reaction Status Date / Time No Known Allergies Allergy Verified 12/06/23 09:38 Exam Vital Signs Temp Pulse Resp BP 08/08/24 11:31 97.6 F 63 16 119/84 Intake and Output 08/07/24 08/08/24 08/08/24 22:59 06:59 14:59 Other: Weight 75.296 kg Height 5 feet 3 inches, weight 166 pounds, BMI 29.4 This is a well-developed well-nourished female who is alert and oriented times 3 in no acute distress. HEENT: Within normal limits. NECK: Supple without mass or thyromegaly. CHEST AND LUNGS: Clear to auscultation. HEART: Regular rate and rhythm. BREASTS: Are without mass or discharge. AXILLARY EXAM: Negative for adenopathy. BACK: Negative for CVA tenderness. ABDOMEN: Soft, nontender, without palpable masses. PELVIC EXAM: Normal external genitalia. Cervix and vagina appear normal. There is no unusual discharge. There is no evidence of prolapse. There is no uterine body consistent with her previous supracervical hysterectomy. There are no palpable adnexal masses or tenderness. RECTAL EXAM: Rectovaginal exam is negative for mass or tenderness and is negative for occult blood. EXTREMITIES: Nontender. IMPRESSION: 1. 43-year-old menopausal female status post supracervical hysterectomy and BSO for bilateral low malignant potential ovarian tumors with no evidence of recurrence on exam today. 2. The patient is doing well with ERT. PLAN: 1. Pap smear was performed. Will continue to do yearly Pap smears because of her history and this is what her gynecologic oncologist had recommended. 2. Self breast awareness was discussed with the patient. We have also discussed symptoms associated with inflammatory breast cancer. 3. Screening mammogram will be due after 12/25/2024 and the order slip was given to the patient for this. 4. Continue doing yearly CA125 test with yearly pelvic ultrasounds because of her history of low malignant potential tumors of the ovary. The order slips were given the patient for this and she will do this in December 2024. 5. Osteoporosis prevention was discussed. I have stressed the importance of adequate calcium, vitamin D and regular exercise. Recommended amounts of calcium and vitamin D were also discussed. 6. Continue estradiol 1 mg daily. The patient will be changing pharmacies, but is not sure which pharmacy she will be going to. She is requested the prescription to be given on a paper prescription and this was given to the patient. When she knows which pharmacy she will be going to, electronic prescriptions can be sent. 7. She was advised to return in one year for her annual well woman exam.
== END ==
LOC: WWCWWP 10:52
PROVIDERS: ATTEND Obstetrics & Gynecology
DX: Z90.711 Acquired absence of uterus with remaining cervical stump (principal); Z90.722 Acquired absence of ovaries, bilateral

== ENCOUNTER → 2024-12-31 | Outpatient (CLI) | payer OTHER ==
--- NOTE | 2024-12-31 14:22 | CT ---
EXAMINATION TYPE: CT abdomen pelvis w con DATE OF EXAM: 12/31/2024 2:11 PM COMPARISON: Ultrasound 12/26/2024, CT 06/30/2017 CLINICAL INDICATION: Female, 44 years old with history of R19.04,R19.09 OTHER INTRA-ABDOMINAL AND PEL ARMIN SWE; LLQ groin mass, hx supracervical cyst BSO for LMP ovarian tumor, partial hysterectomy. TECHNIQUE: Axial CT abdomen pelvis w con;Sagittal and coronal reformats were created on a separate w orkstation. Contrast used:100 mL of Isovue 300 with IV Contrast, (none if empty) Oral contrast used: with Oral Contrast (none if empty) CT DLP: 1085 mGycm, Automated exposure control for dose reduction was used. FINDINGS: LOWER CHEST: Unremarkable ABDOMEN LIVER: Unremarkable GALLBLADDER AND BILE DUCTS: Unremarkable. PANCREAS: Unremarkable. SPLEEN: Unremarkable. ADRENAL GLANDS: Unremarkable. KIDNEYS AND URETERS: No evidence of hydronephrosis or obstructing renal calculus. The ureters are unr emarkable. Left renal cortical simple appearing 11 mm cyst. No follow-up recommended. PELVIS BLADDER: No evidence for wall thickening or mass given limitations of exam. REPRODUCTIVE: Uterus appears surgically absent. Mild thickening of the vagina [place]. ABDOMEN & PELVIS STOMACH AND BOWEL: No evidence of bowel obstruction. PERITONEUM/RETROPERITONEUM: No evidence of pneumoperitoneum or free fluid. VASCULATURE: No evidence of aortic aneurysm. MUSCULOSKELETAL: No acute osseous abnormalities. Moderate disc degeneration changes are present throu ghout the thoracolumbar spine. L4-L5 moderate neural foraminal stenosis. LYMPH NODES: No gross evidence for lymphadenopathy. SOFT TISSUE/ABDOMINAL WALL: Soft tissue mass in the left lower quadrant near the inguinal canal measu ring 19 x 15 mm. There is central area of enhancement suggested on both ultrasound and CT. There is a hyperdense area in the center of which could possibly relate to calcification IMPRESSION: Left groin subcutaneous mass measuring 19 x 15 mm new from 02/10/2017. Few subcutaneous vessels do sly sely approximate this lesion. Possible central calcification versus enhancing nodule. No evidence for lymphadenopathy. Consider tissue sample for definitive diagnosis. Hysterectomy changes present. [facility], , 12/31/2024 2:20 PM
--- NOTE | 2025-01-02 09:23 | P.PN ---
Progress Note - Text Progress Note Date: 01/02/25 OUTPATIENT FOLLOW-UP NOTE TEST(S)/RESULTS: CT scan of the abdomen and pelvis from 12/31/2024 shows a 1.9 x 1.5 cm subcutaneous mass which is new from the 2017 CT scan. METHOD OF NOTIFICATION: This was discussed with the patient by phone on 01/02/2025. PATIENT COMMENTS: Her PCP, Dr. Juan, also spoke with her regarding the CT scan results and they have made a referral to Dr. Chema Vega for this. DIAGNOSIS: Left lower quadrant superficial groin mass. History of bilateral salpingo-oophorectomy for low malignant potential ovarian tumors more than 10 years ago. DISCUSSION: I reviewed this with Dr. Spring, the radiologist. He states this does not represent a hernia and would need tissue sampling to get a diagnosis. He states 1 option would be for an interventional radiologist to get a tissue biopsy. A general surgeon could also possibly remove it. I have discussed these options with the patient. We have decided to make the referral for Dr. Vega and if he is not able to see her in a relatively short period of time, we will consider getting a tissue biopsy with an interventional radiologist. PLAN: As above.
== END | disposition home or self-care (01) ==
LOC: RADCTMAIN 11:27
PROVIDERS: ATTEND Obstetrics & Gynecology
DX: R19.04 Left lower quadrant abdominal swelling, mass and lump (principal); R19.09 Other intra-abdominal and pelvic swelling, mass and lump; Z90.710 Acquired absence of both cervix and uterus
CPT/HCPCS: 74177; Q9967